=== PATIENT | female | born 1990 | race Caucasian/White ===

== ENCOUNTER 2016-08-27 15:16 | Emergency (ER) | payer OTHER ==
[~2016-08-27] VITALS: Ht 160 cm; Wt 78.7 kg
[~2016-08-27 15:16] MED LIST: BCPILLS PO
[2016-08-27 15:24] VITALS: TEMP 36.8; Ht 160 cm; Wt 78.7 kg
--- NOTE | 2016-08-27 16:22 | EMERGENCY ROOM VISIT NOTE ---
History Report prepared by Scribe: Aurelia Fairbanks Under the Supervision of: Dr. Adam Cornelius D.O. First contact with patient: 15:37 Chief Complaint: ABDOMINAL PAIN Stated Complaint: LUMP ON/NEAR ANUS - LOWER ABDOMINAL PRESSURE Nursing Triage Summary: Pt states, "I have a lump on my butthole that has been there for two days. It's uncomfortable. Whenever I wipe it bleeds a little bit. I have pressure in my abd. My mom thinks I'm constipated." Last BM was yesterday. Denies n/v. History of Present Illness The patient is a 26 year old female who presents to the Emergency Room with complaints of persistent lump near her rectal sphincter. She reports she noticed it 2 days ago. She states the area is "uncomfortable" and whenever she wipes her bottom, it bleeds "a little bit". She rates her discomfort as a 3/10. Her last bowel movement was yesterday and normal. She denies any gross blood in her stool. Her LMP ended last week and was normal. She is sexually active but has not had intercourse in the past week. She denies any recent instruments being inserted in her rectum. She denies any history of STD's. The patient complains of a feeling of lower abdominal "pressure" and states "my Mom thinks I 'm constipated". She notes her Mother is an RN. The patient denies any history of constipation and reports her diet regularly includes fruits and vegetables. She denies any recent nausea, vomiting or diarrhea. She also denies any chronic medical issues and states she only takes daily control. Source of History: patient Onset: 2 days FLOORLEADER Position: other (rectum) Symptom Intensity: 3/10 Timing: other (persistent) Associated Symptoms: + abdominal pain, No diarrhea, No nausea, No vomiting Review of Systems See HPI for pertinent positives & negatives. A total of 10 systems reviewed and were otherwise negative. Past Medical & Surgical Medical Problems: (1) Tonsillectomy and adenoidectomy Social History Smoking Status: Never Smoker Alcohol Use: occasionally Drug Use: none Marital Status: single Housing Status: lives with roommate Occupation Status: [employer] student Current/Historical Medications Scheduled Control Pills ( Control Pills), 1 TAB PO DAILY Allergies Coded Allergies: No Known Allergies (Unverified , 08/27/16) Physical Exam Vital Signs Date Time Temp Pulse Resp B/P Pulse Ox O2 Delivery O2 Flow Rate FiO2 08/27/16 16:30 76 16 136/71 99 08/27/16 15:24 36.8 71 20 164/89 97 Room Air Physical Exam GENERAL: Patient is awake, alert, in no acute distress, patient is resting comfortably and showing no signs of anxiety EYES: The conjunctivae are clear. The pupils are round and reactive. EARS, NOSE, MOUTH AND THROAT: The nose is without any evidence of any deformity. Mucous membranes are moist tongue is midline NECK: The neck is nontender and supple. RESPIRATORY: Normal respiratory effort is noted there is no evidence of wheezing rhonchi or rales CARDIOVASCULAR: Regular rate and rhythm noted there no murmurs rubs or gallops normal S1 normal S2 GASTROINTESTINAL: The abdomen is soft. Bowel sounds are present in all quadrants. Abdomen is nontender RECTAL: External rectal exam revealed external hemorrhoid which was tender, but not thrombosed. Signs of recent bleeding noted, no signs of proctitis appreciated. MUSCULOSKELETAL/EXTREMITIES: There is no evidence of gross deformity full range of motion is noted in the hips and shoulders SKIN: There is no obvious evidence of any rash. There are no petechiae, pallor or cyanosis noted. NEUROLOGIC: Patient is awake alert and oriented x3 Medical Decision & Procedures ED Course 1617: The patient was evaluated in room B10. A complete history and physical examination were performed. 1630: I reevaluated the patient. She is feeling well. I discussed her results and discharge instructions and she verbalized complete understanding and agreement. Medical Decision Prior records/ancillary studies reviewed. Triage Nursing notes reviewed. The patient's history was concerning for possible gastrointestinal bleeding. Differential diagnosis: Etiologies such as diverticulosis, AVM, coagulopathy, colitis, inflammatory bowel disease, malignancy, Vannessa-Monroe tear, esophagitis, peptic ulcer disease , variceal bleed, gastritis, epistaxis, fissure, hemorrhoids, as well as others were entertained. The patient is a 26-year-old female who presented to emergency department for an evaluation of rectal pain. The patient was found have signs of a recently bleeding external hemorrhoid. It was not thrombosed on physical exam. I discussed the patient's diagnosis with her. She was encouraged to try over-the- counter medications and follow-up with her primary care physician. She was also encouraged to return to emergency department immediately if symptoms change worsen or the need arises. Impression Primary Impression: External hemorrhoid Additional Impression: Rectal pain Scribe Attestation The scribe's documentation has been prepared under my direction and personally reviewed by me in its entirety. I confirm that the note above accurately reflects all work, treatment, procedures, and medical decision making performed by me. Departure Information Dispostion Home / Self-Care Referrals No Doctor, Assigned (PCP) Patient Instructions Hemorrhoids Self Care, My [facility] Additional Instructions Continue all medications as prescribed. I would recommend a stool softener such as Colace as well as an [id number] hemorrhoid cream. Follow-up with your family doctor soon as possible. Return to the emergency department if symptoms worsen or if need arises. Problem Qualifiers
[2016-08-27 16:30] VITALS: BP 136/71; PULSE 76; O2SAT 99
== END 2016-08-27 16:31 | disposition home or self-care (01) ==
LOC: C.EDB 15:17
DX: K64.4 Residual hemorrhoidal skin tags (principal); K62.89 Other specified diseases of anus and rectum

== ENCOUNTER → 2017-06-18 | Outpatient (CLI) | payer BC ==
[2017-06-18 12:55] LABS: INFLUENZA B PCR Neg for Influ B (NEG)
[2017-06-18 12:58] LABS: INFLUENZA A PCR POS for Influ A (NEG)
== END | disposition home or self-care (01) ==
LOC: C.LABBC 08:35
PROVIDERS: ATTEND Family Medicine Adult Medicine
DX: J06.9 Acute upper respiratory infection, unspecified (principal)

== ENCOUNTER → 2017-10-18 | Outpatient (CLI) | payer BC | END | disposition home or self-care (01) | LOC: C.LABSPEC 10:46 | PROVIDERS: ATTEND Physician Assistant | DX: Z12.4 Encounter for screening for malignant neoplasm of cervix (principal) ==

== ENCOUNTER → 2017-10-18 | Outpatient (CLI) | payer BC | END | disposition home or self-care (01) | LOC: C.PAPS 11:40 | PROVIDERS: ATTEND Physician Assistant | DX: Z01.411 Encounter for gynecological examination (general) (routine) with abnormal findings (principal); R87.619 Unspecified abnormal cytological findings in specimens from cervix uteri ==